=== PATIENT | male | born 1990 | race Caucasian/White ===

== ENCOUNTER 2019-04-01 11:54 | Emergency (ER) | payer OTHER ==
[2019-04-01] MEDS ORDERED: KETOROLAC 30 MG/ML VIAL IVP ONE (12:14)
--- NOTE | 2019-04-01 12:14 | Emergency Department Record ---
History of Present Illness - General Chief complaint: Flank Pain Stated complaint: R SIDE PAIN Time Seen by Provider: 04/01/19 11:58 Source: Patient Mode of Arrival: Ambulatory Limitations: No limitations - History of Present Illness Initial comments: The patient is here due to a 3 day hx of R sided mid abdominal pain. The pain is a sharp aching pain in the R mid abdomen and worse with certain movements. He has had some loose stools but no fever, nausea, vomiting, dysuria, or back pain. The patient has had kidney stones in the past but this is different. The patient has had a normal appetite. MD Complaint: Other Onset/Timin -: Days(s) Location: Abdomen, Right flank Severity: Mild Severity scale (1-10): 4 Quality: Aching Consistency: Constant Improves with: None Worsens with: None Reports: Denies other symptoms - Related Data Home Medications Medication Instructions Recorded Confirmed Last Taken Albuterol Sulfate [Proair Hfa] 1 - 2 puff IH .EVERY 4-6 HOURS PRN 04/01/19 04/01/19 Unknown Previous Rx's Medication Instructions Recorded Naproxen [Naprosyn] 500 mg PO BID #14 tablet. 04/01/19 Allergies Allergy/AdvReac Type Severity Reaction Status Date / Time No Known Drug Allergies Allergy Verified 04/01/19 12:03 Travel Screening - Travel/Exposure Within Last 30 Days Have you traveled within the last 30 days?: No Review of Systems Constitutional: Denies: Chills, Fever Eyes: Denies: Eye discharge ENT: Denies: Congestion Respiratory: Denies: Cough, Dyspnea Physical Exam - General General Appearance: Alert, Oriented x3, Cooperative, No acute distress - Head Head exam: Atraumatic, Normocephalic - Eye Eye exam: Normal appearance - Neck Neck exam: Normal inspection, Full ROM. negative: Tenderness - Respiratory Respiratory exam: Normal lung sounds bilaterally. negative: Respiratory distress - Cardiovascular Cardiovascular Exam: Regular rate, Normal rhythm, Normal heart sounds - GI/Abdominal GI/Abdominal exam: Soft, Normal bowel sounds, Tenderness (There is very mild R mid abdominal tenderness but with no guarding or rebound. ). negative: Distended, Guarding, Hernia, Rebound, Rigid - exam: Circumcision, Normal inspection. negative: Scrotal swelling, Testicular tenderness - Extremities Extremities exam: Normal inspection. negative: Tenderness - Back Image of Body Front/Back: 1 - Area of pain and very mild tenderness. - Neurological Neurological exam: Alert. negative: Motor sensory deficit Course Vital Signs 04/01/19 12:00 Temperature 97.9 F Pulse Rate 62 Respiratory 20 Rate Blood Pressure 145/99 Pulse Ox 99 - Reevaluation(s) Reevaluation #1: The patient is doing very well at this time. He still has the pain intermittently but has no fever, nausea, vomiting, or back pain. I did explain the neg labs and CT to him and did recommend recheck tomorrow. He will return to the ER for any worsening symptoms. 04/01/19 13:11 Medical Decision Making - Data Complexity MDM Data: Labs Ordered and/or Reviewed, X-Ray Ordered and/or Reviewed - Lab Data Result diagrams: 04/01/19 12:20 04/01/19 12:20 - Radiology Data Radiology results: Report reviewed (CT: Neg per Rad.) Disposition Disposition: Discharge Clinical Impression: Abdominal pain Qualifiers: Abdominal location: unspecified location Qualified Code(s): R10.9 - Unspecified abdominal pain Disposition: Home, Self-Care Condition: (2) Stable Instructions: Abdominal Pain (ED) Additional Instructions: Please take the Naprosyn for pain and eat a very bland diet. Please see your family doctor in 1-2 days for recheck. Return to the ER for ANY worsening pain, fever, vomiting, or bleeding. Prescriptions: Naproxen [Naprosyn] 500 mg PO BID #14 tablet.dr Forms: Patient Portal Access Time of Disposition: 13:14 Quality - Quality Measures Quality Measures: N/A - Blood Pressure Screening View Details: Yes Does Patient Have Any of the Following: No Blood Pressure Classification: Hypertensive Reading Systolic Measurement: 145 Diastolic Measurement: 99 Screening for High Blood Pressure: < First Hypertensive BP, F/U Documented > [G8950] First Hypertensive Follow-up Interventions: Referral to alternative/primary care provider.
[2019-04-01 12:25] LABS: ABSOLUTE NEUTROPHIL COUNT 3.64; BASO % 0.3 % (0-6); EOS % 2.5 % (0-6); GRAN % 56.3 % (47-80); HEMATOCRIT 46.9 % (42.0-52.0); HEMOGLOBIN 15.8 gm/dl (14.0-18.0); LYMPH % 31.8 % (16-45); MEAN CELL VOLUME 89.8 fl (81-97); MEAN CORPUSCULAR HEMOGLOBIN 30.3 pg (27-33); MEAN CORPUSCULAR HGB CONC 33.7 g/dl (32-36); MEAN PLATELET VOLUME 10.5 fl (7.4-10.4); MONO % 9.1 % (0-9); PLATELET COUNT 220 K/uL (130-400); RED BLOOD COUNT 5.22 M/uL (4.40-5.70); RED CELL DISTRIBUTION WIDTH 12.2 % (11.5-14.5); WHITE BLOOD COUNT W/O DIFF 6.5 K/uL (4.2-12.2)
[2019-04-01 12:28] LABS: URINE APPEARANCE CLEAR; URINE BILIRUBIN NEGATIVE (NEGATIVE); URINE BLOOD NEGATIVE (NEGATIVE); URINE COLOR YELLOW; URINE GLUCOSE (UA) NEGATIVE (NEGATIVE); URINE KETONE NEGATIVE (NEGATIVE); URINE LEUKOCYTE ESTERASE NEGATIVE (NEGATIVE); URINE NITRITE NEGATIVE (NEGATIVE); URINE PROTEIN NEGATIVE (NEGATIVE); URINE UROBILINOGEN 0.2 E.U./dL (0.20 - 1.00)
[2019-04-01 12:34] LABS: BLOOD UREA NITROGEN 12 mg/dL (6-20); CREATININE 0.7 mg/dL (0.7-1.2); EST GLOMERULAR FILTRATION RATE > 60 mL/min
[2019-04-01 12:35] LABS: LIPASE 29 U/L (13-60); TOTAL PROTEIN 7.1 g/dL (6.6-8.7)
[2019-04-01 12:37] LABS: GLUCOSE,RANDOM 89 mg/dL (74-109)
[2019-04-01 12:39] LABS: ALT/SGPT 33 U/L (<41); AST/SGOT 22 U/L (10.0-50.0)
[2019-04-01 12:40] LABS: ALBUMIN 4.6 g/dL (4.0-5.0); ALKALINE PHOSPHATASE 71 U/L (40-129); BILIRUBIN,DIRECT < 0.2 mg/dL (0-0.3)
--- NOTE | 2019-04-02 10:05 | CT SCAN REPORT ---
EXAM: CT OF THE ABDOMEN AND PELVIS WITHOUT CONTRAST HISTORY: RIGHT STOMACH PAIN. TECHNIQUE: Noncontrast CT images are obtained from the dome of the diaphragm to the symphysis pubis. FINDINGS: The lung bases and pleural spaces are clear. The liver is unremarkable in size and shape without focal mass or biliary dilatation. The gallbladder is normal. The pancreas and spleen appear unremarkable. The adrenal glands and kidneys are free of soft tissue mass or hydronephrosis. There is a nonobstructing punctate calculus in the mid right kidney. No ureteral calculi or dilatation is identified. The stomach is unremarkable. The small bowel is free of distention or wall thickening. The colon demonstrates no significant dilatation. There are a few uncomplicated sigmoid diverticula present. There is no mesenteric mass. There is no retroperitoneal adenopathy. No intrapelvic fluid collection or soft tissue is seen. IMPRESSION: NEGATIVE NONCONTRAST CT SCAN OF THE ABDOMEN AND PELVIS. EVALUATION OF THE SOLID ORGANS IS LIMITED BY LACK OF INTRAVENOUS CONTRAST. JOB NUMBER: [id number] [facility]
== END 2019-04-01 13:21 | disposition home or self-care (01) ==
LOC: ER 11:54
DX: R10.11 Right upper quadrant pain (principal); R19.7 Diarrhea, unspecified; Z87.442 Personal history of urinary calculi
CPT/HCPCS: 74176; 80048; 80076; 81003; 83690; 85025; 96374; 99284; J1885